=== PATIENT | female | born 2000 | race Two or more races ===

== ENCOUNTER 2024-11-19 18:33 | Emergency (ER) | payer OTHER ==
[~2024-11-19] VITALS: Ht 167.6 cm; Wt 65.5 kg
[2024-11-19 20:05] LABS: BASO # 0.1 10^3/uL (0.0-0.2); BASO % 1.3 % (0.0-1.0); EOS # 0.2 10^3/uL (0.0-0.5); EOS % 3.0 % (0.0-3.0); LYMPH # 2.3 10^3/uL (1.5-5.0); LYMPH % 35.9 % (24.0-44.0); MONO # 0.5 10^3/uL (0.0-0.8); MONO % 8.5 % (2.0-8.0); NEUTROPHILS # 3.2 10^3/uL (1.5-8.5); NEUTROPHILS % 51.1 % (36.0-66.0); PLATELET COUNT, AUTOMATED 214 10^3/uL (150-450)
[2024-11-19 20:23] LABS: HCG, SERUM QUALITATIVE POSITIVE (NEGATIVE)
[2024-11-19 20:26] LABS: ALT/SGPT 11 U/L (7.0-40); AST/SGOT 14 U/L (<34); CALCIUM LEVEL 10.1 MG/DL (8.5-10.1); CARBON DIOXIDE LEVEL 24 MMOL/L (20-31); CHLORIDE LEVEL 105 MMOL/L (98-107); CREATININE FOR GFR 0.78 MG/DL (0.55-1.30); GLOMERULAR FILTRATION RATE > 90.0 (>60); POTASSIUM SERUM 3.8 MMOL/L (3.5-5.1); SODIUM LEVEL 140 MMOL/L (136-145)
[2024-11-19 20:41] LABS: KETONE, URINE AUTO RFX 1+ mg/dL (NEGATIVE); LEUKOCYTE ESTERASE UR AUTO RFX NEGATIVE (NEGATIVE); NITRITE, URINE AUTO RFX NEGATIVE (NEGATIVE); RBC, URINE AUTO RFX 1 /HPF (0-3); SQUAM EPITHELIAL CELL UR AURFX 2 /HPF (0-6); WBC, URINE AUTO RFX 3 /HPF (0-3)
[2024-11-19 21:10] LABS: HCG, SERUM QUANTITATIVE 69749.3 MIU/ML (<4.2)
[2024-11-19] MEDS: NS (Normal Saline) 0.9% 1,000 ML IV ONE (22:11)
[2024-11-20] MEDS ORDERED: PROM12.54 PR (00:03)
[2024-11-20] MEDS ORDERED: CEPH500C PO (00:07)
[2024-11-20 00:13] VITALS: BP 118/82; TEMP 98; O2SAT 100
== END 2024-11-20 00:15 | disposition home or self-care (01) ==
LOC: M ED 18:33
DX: O99.891 Other specified diseases and conditions complicating pregnancy (principal)
CPT/HCPCS: 80048; 80076; 81001; 84702; 84703; 85025; 86850; 86900; 86901; 87486; 87581; 87633; 87798; 96361; 96374; 99284; J2550

== ENCOUNTER 2024-12-20 09:18 | Emergency (ER) | payer OTHER ==
[~2024-12-20] VITALS: Ht 165.1 cm; Wt 63.2 kg
[~2024-12-20 09:18] MED LIST: CEPH500C PO; PROM12.54 PR
[2024-12-20 09:21] VITALS: BP 125/78; TEMP 97.6; O2SAT 99
[2024-12-20] MEDS ORDERED: ONDA-282 (09:26)
[2024-12-20] MEDS: ONDANSETRON 4MG 2ML VIAL IV ONE (10:43)
[2024-12-20] MEDS: NS (Normal Saline) 0.9% 1,000 ML IV ONE (10:44)
[2024-12-20 11:07] LABS: KETONE, URINE AUTO RFX TRACE mg/dL (NEGATIVE); LEUKOCYTE ESTERASE UR AUTO RFX NEGATIVE (NEGATIVE); NITRITE, URINE AUTO RFX NEGATIVE (NEGATIVE); RBC, URINE AUTO RFX 1 /HPF (0-3); SQUAM EPITHELIAL CELL UR AURFX 3 /HPF (0-6); WBC, URINE AUTO RFX 1 /HPF (0-3)
[2024-12-20 11:08] LABS: BASO # 0.1 10^3/uL (0.0-0.2); BASO % 1.2 % (0.0-1.0); EOS # 0.1 10^3/uL (0.0-0.5); EOS % 1.9 % (0.0-3.0); LYMPH # 1.7 10^3/uL (1.5-5.0); LYMPH % 30.7 % (24.0-44.0); MONO # 0.5 10^3/uL (0.0-0.8); MONO % 9.5 % (2.0-8.0); NEUTROPHILS # 3.2 10^3/uL (1.5-8.5); NEUTROPHILS % 56.5 % (36.0-66.0); PLATELET COUNT, AUTOMATED 200 10^3/uL (150-450)
[2024-12-20 12:16] LABS: CALCIUM LEVEL 9.2 MG/DL (8.5-10.1); CARBON DIOXIDE LEVEL 26 MMOL/L (20-31); CHLORIDE LEVEL 104 MMOL/L (98-107); CREATININE FOR GFR 0.70 MG/DL (0.55-1.30); GLOMERULAR FILTRATION RATE > 90.0 (>60); HCG, SERUM QUANTITATIVE 284558.8 MIU/ML (<4.2); POTASSIUM SERUM 4.2 MMOL/L (3.5-5.1); SODIUM LEVEL 137 MMOL/L (136-145)
== END 2024-12-20 12:35 | disposition home or self-care (01) ==
LOC: M ED 09:18
DX: O21.9 Vomiting of pregnancy, unspecified (principal); Z3A.00 Weeks of gestation of pregnancy not specified
CPT/HCPCS: 80048; 81001; 84702; 85025; 96361; 96374; 99284; J2405

== ENCOUNTER → 2024-12-26 | Outpatient (CLI) | payer OTHER ==
[~2024-12-26] MED LIST changes: +ONDA-282
[2024-12-26 15:50] LABS: PLATELET COUNT, AUTOMATED 191 10^3/uL (150-450)
[2024-12-26 16:45] LABS: HIV 1&2 SCREEN NEGATIVE (NEGATIVE)
[2024-12-26 16:52] LABS: HEPATITIS C VIRUS ABY INDEX < 0.02 INDEX (<0.8)
[2024-12-26 18:16] LABS: Trichomonas vaginalis (AMP) NOT DETECTED (NEGATIVE)
[2024-12-26 18:40] LABS: GC DNA AMPLIFICATION NEGATIVE (NEGATIVE)
== END ==
LOC: M PLALAB 14:18
PROVIDERS: ATTEND Nurse Practitioner Family
DX: Z34.80 Encounter for supervision of other normal pregnancy, unspecified trimester (principal)

== ENCOUNTER → 2024-12-26 | Outpatient (REF) | payer OTHER | LOC: M PLALAB 14:02 | PROVIDERS: ATTEND Nurse Practitioner Family | DX: Z53.9 Procedure and treatment not carried out, unspecified reason (principal) ==

== ENCOUNTER 2024-12-31 17:52 | Emergency (ER) | payer OTHER ==
[~2024-12-31] VITALS: Ht 175.3 cm; Wt 63.5 kg
[2024-12-31 21:41] LABS: BASO # 0.1 10^3/uL (0.0-0.2); BASO % 0.8 % (0.0-1.0); EOS # 0.1 10^3/uL (0.0-0.5); EOS % 0.8 % (0.0-3.0); LYMPH # 1.5 10^3/uL (1.5-5.0); LYMPH % 20.1 % (24.0-44.0); MONO # 0.6 10^3/uL (0.0-0.8); MONO % 7.6 % (2.0-8.0); NEUTROPHILS # 5.4 10^3/uL (1.5-8.5); NEUTROPHILS % 70.4 % (36.0-66.0); PLATELET COUNT, AUTOMATED 216 10^3/uL (150-450)
[2024-12-31 22:06] LABS: CALCIUM LEVEL 9.9 MG/DL (8.5-10.1); CARBON DIOXIDE LEVEL 25 MMOL/L (20-31); CHLORIDE LEVEL 103 MMOL/L (98-107); CREATININE FOR GFR 0.72 MG/DL (0.55-1.30); GLOMERULAR FILTRATION RATE > 90.0 (>60); POTASSIUM SERUM 3.6 MMOL/L (3.5-5.1); SODIUM LEVEL 139 MMOL/L (136-145)
[2024-12-31] MEDS: ONDANSETRON 4MG 2ML VIAL IV ONE (23:04)
[2024-12-31] MEDS: NS (Normal Saline) 0.9% 1,000 ML IV ONE (23:04)
[2024-12-31 23:09] LABS: HCG, SERUM QUANTITATIVE 236802.8 MIU/ML (<4.2)
[2025-01-01] MEDS: PANTOPRAZOLE 40MG VIAL IV ONE (01:42)
[2025-01-01] MEDS ORDERED: ONDA-282 PO (05:13)
[2025-01-01] MEDS ORDERED: PROT1TAB2 PO (05:13)
[2025-01-01 05:19] VITALS: BP 110/67; TEMP 97; O2SAT 98
== END 2025-01-01 05:22 | disposition home or self-care (01) ==
LOC: M ED 17:52
DX: O99.611 Diseases of the digestive system complicating pregnancy, first trimester (principal); O21.9 Vomiting of pregnancy, unspecified; O34.10 Maternal care for benign tumor of corpus uteri, unspecified trimester; D25.9 Leiomyoma of uterus, unspecified; Z3A.13 13 weeks gestation of pregnancy
CPT/HCPCS: 76801; 80048; 84702; 85025; 87486; 87581; 87633; 87798; 93976; 96361; 96374; 96375; 99284; J2405; J2470

== ENCOUNTER 2025-01-10 19:39 | Emergency (ER) | payer OTHER ==
[~2025-01-10] VITALS: Ht 165.1 cm; Wt 66.3 kg
[~2025-01-10 19:39] MED LIST changes: +ONDA-282 PO; +PROT1TAB2 PO
[2025-01-10 21:07] LABS: BASO # 0.1 10^3/uL (0.0-0.2); BASO % 0.6 % (0.0-1.0); EOS # 0.2 10^3/uL (0.0-0.5); EOS % 1.9 % (0.0-3.0); LYMPH # 1.9 10^3/uL (1.5-5.0); LYMPH % 22.0 % (24.0-44.0); MONO # 0.8 10^3/uL (0.0-0.8); MONO % 8.9 % (2.0-8.0); NEUTROPHILS # 5.6 10^3/uL (1.5-8.5); NEUTROPHILS % 66.2 % (36.0-66.0); PLATELET COUNT, AUTOMATED 181 10^3/uL (150-450)
[2025-01-10 21:52] LABS: ALT/SGPT 11 U/L (7.0-40); AST/SGOT 14 U/L (<34); CALCIUM LEVEL 9.3 MG/DL (8.5-10.1); CARBON DIOXIDE LEVEL 23 MMOL/L (20-31); CHLORIDE LEVEL 105 MMOL/L (98-107); CREATININE FOR GFR 0.67 MG/DL (0.55-1.30); GLOMERULAR FILTRATION RATE > 90.0 (>60); POTASSIUM SERUM 4.0 MMOL/L (3.5-5.1); SODIUM LEVEL 140 MMOL/L (136-145)
[2025-01-10 22:09] LABS: KETONE, URINE AUTO RFX NEGATIVE (NEGATIVE); LEUKOCYTE ESTERASE UR AUTO RFX NEGATIVE (NEGATIVE); MUCUS, URINE RFX SMALL (NEGATIVE); NITRITE, URINE AUTO RFX NEGATIVE (NEGATIVE); RBC, URINE AUTO RFX 0 /HPF (0-3); SQUAM EPITHELIAL CELL UR AURFX 1 /HPF (0-6); WBC, URINE AUTO RFX 1 /HPF (0-3)
[2025-01-10 22:57] LABS: HCG, SERUM QUANTITATIVE 136424.9 MIU/ML (<4.2)
[2025-01-11] MEDS: ACETAMINOPHEN 325 MG TAB PO ONE (00:43)
[2025-01-11] MEDS ORDERED: MIRA3350 PO (01:37)
[2025-01-11] MEDS ORDERED: COLA100C5 PO (01:37)
[2025-01-11 02:01] VITALS: BP 109/60; TEMP 97.5; O2SAT 99
== END 2025-01-11 02:04 | disposition home or self-care (01) ==
LOC: M ED 19:39
DX: O26.892 Other specified pregnancy related conditions, second trimester (principal); O34.12 Maternal care for benign tumor of corpus uteri, second trimester; Z3A.13 13 weeks gestation of pregnancy; Z79.899 Other long term (current) drug therapy

== ENCOUNTER → 2025-01-13 | Outpatient (REF) | payer OTHER ==
[~2025-01-13] MED LIST changes: +COLA100C5 PO; +MIRA3350 PO
[2025-01-13 13:42] LABS: APPEARANCE, URINE HAZY (CLEAR); BACTERIA, URINE AUTO NEGATIVE (NEGATIVE); BILIRUBIN, URINE AUTO NEGATIVE (NEGATIVE); BLOOD, URINE BLOOD NEGATIVE (NEGATIVE); GLUCOSE, URINE (UA) AUTO NEGATIVE (NEGATIVE); KETONE, URINE AUTO NEGATIVE (NEGATIVE); LEUKOCYTE ESTERASE, URINE AUTO NEGATIVE (NEGATIVE); NITRITE, URINE AUTO NEGATIVE (NEGATIVE); PROTEIN, URINE AUTO NEGATIVE (NEGATIVE); RBC, URINE AUTO 1 /HPF (0-3); SPECIFIC GRAVITY URINE AUTO 1.015 (1.002-1.035); SQUAMOUS EPITHELIAL CELL UR AU 7 /HPF (0-6); UROBILINOGEN, URINE AUTO 2.0 mg/dL (0.0-2.0); WBC, URINE AUTO 1 /HPF (0-3)
== END ==
LOC: M PLALAB 09:30
PROVIDERS: ATTEND Advanced Practice Midwife
DX: R30.0 Dysuria (principal)

== ENCOUNTER → 2025-02-14 | Outpatient (CLI) | payer OTHER | LOC: M WHC 10:34 | PROVIDERS: ATTEND Student in an Organized Health Care Education/Training Program | DX: Z34.80 Encounter for supervision of other normal pregnancy, unspecified trimester (principal) ==